=== PATIENT | female | born 2000 | race Caucasian/White ===

== ENCOUNTER 2024-04-15 21:05 | Emergency (ER) | payer OTHER, SELFPAY ==
[2024-04-15 21:15] VITALS: BP 114/71
[2024-04-15 21:39] LABS: % Basophils 0.3 % (0-2); % Eosinophils 0.7 % (0-6); % Immature Granulocytes 0.2 % (0-0.5); % Lymphocytes 13.1 % (20.5-51.1); % Monocytes 6.4 % (1.7-9.3); % Neutrophils 79.3 % (42.2-75.2); Absolute Eosinophils 0.1 10^3/uL (0-0.7); Absolute Lymphocytes 1.4 10^3/uL (1.2-3.4); Absolute Monocytes 0.7 10^3/uL (0.1-0.6); Absolute Neutrophils 8.3 10^3/uL (1.4-6.5); Hematocrit 42.1 % (37.0-47.0); Hemoglobin 14.3 g/dL (12.0-16.0); Mean Corpuscular Hgb 30.7 pg (27.0-31.0); Mean Corpuscular Volume 90.3 fL (81.0-99.0); Mean Platelet Volume 8.9 fL (7.4-10.4); Nucleated Red Blood Cells % 0 %; Platelet Count 213 10^3/uL (130-400); Red Blood Cell Count 4.66 10^6/uL (4.20-5.40); Red Cell Dist. Width 11.9 % (11.5-14.5); White Blood Cell Count 10.4 10^3/uL (4.8-10.8)
[2024-04-15 21:51] LABS: HCG, Serum Qualitative Screen Negative
[2024-04-15 21:59] LABS: ALT (SGPT) 18 U/L (0-35); AST (SGOT) 25 U/L (14-36); Albumin 4.7 g/dl (3.5-5.0); Alkaline Phosphatase 51 U/L (38-126); Blood Urea Nitrogen 12 mg/dl (7-17); Calcium 9.6 mg/dl (8.4-10.2); Carbon Dioxide 27 mmol/L (22-30); Chloride 106 mmol/L (98-107); Glucose 93 mg/dl (70-99); Potassium 4.2 mmol/L (3.5-5.1); Sodium 139 mmol/L (135-145); Total Bilirubin 0.2 mg/dl (0.2-1.3); Total Protein 7.3 g/dl (6.3-8.2); eGFR > 60.00
[2024-04-15 22:48] VITALS: BP 96/57
--- NOTE | 2024-04-15 23:14 | ED.GENMED ---
History of Present Illness
<VIOLETA Dupree - Last Filed: 04/16/24 01:11>
General
Chief Complaint: Abdominal Symptoms
Source: patient and family
Exam Limitations: none
Time Seen by Provider: 04/15/24 23:13
Nursing documentation reviewed up to this point in time: agreed with
History of Present Illness
History of Present Illness:
Pt is a 23 yo F who presents to the ED with her mother for nausea, vomiting and diarrhea x 3 hours. She states she has had 4 prior episodes on the past year that comes on randomly. She states she has been following with GI and an electrotyper apprentice who told
her to come to the ED for blood work within 4 hours of the next episode of these symptoms. She states nausea was her first symptom and then about 20 minutes after that she vomited 4 times, which she states was non-bloody. Pt states she has zofran at
home and took it, which resolved symptoms of nausea and vomiting. Soon after, diarrhea began and had been episodic since arrival to the ED. Pt states she is feeling fine now and just wanted to come for the blood work. She states she feels that she
will be able to rehydrate adequately at home.
Review of Systems
<VIOLETA Dupree - Last Filed: 04/16/24 01:11>
Review of Systems
Allergies reviewed?: Yes
Other source history: family
Constitutional: Denies fever, fatigue or chills
Respiratory: Denies cough or trouble breathing
Cardiac: Denies chest pain or palpitations
ABD/GI: Reports nausea, vomiting and diarrhea; Denies abdominal pain or bloody stools
: Reports no symptoms
Neurological: Denies dizzy, headache, weakness or numbness
Phy Exam
<VIOLETA Dupree - Last Filed: 04/16/24 01:11>
General Physical Exam
General Presentation: well appearing and no apparent distress
General age: appears stated age
General Skin: warm and dry
General Habitus: normal
General Mental: alert
General Hydration: appears well hydrated
Eye Exam
Eye Exam: PERRL
Cardiovascular Exam
Cardiovascular Exam: regular rate/rhythm and no murmur
Pulmonary Exam
Pulmonary Exam: lungs clear and no respiratory distress
Gastrointestinal Exam
Gastrointestinal Exam: normal bowel sounds, non tender, soft and non distended
Neurological Exam
Neurological Exam: alert, oriented x3, no motor deficits, no sensory deficits and speech normal
Psychiatric Exam
Psychiatric Exam: normal mood/affect
Course
<VIOLETA Dupree - Last Filed: 04/16/24 01:11>
Orders/Labs/Results
Orders:
Orders
04/15/24 21:14
Test Result ONCE
04/15/24 21:20
C1 Esterase Inhibitor, Funct [S] Urgent
Complement C4 Urgent
Complete Blood Count/With Diff Urgent
Comprehensive Metabolic Panel Urgent
HCG, Serum Qualitative Screen Urgent
Tryptase [S] Urgent
Abnormal Lab Results
04/15/24
21:20
Absolute Neuts (auto) 8.3 H 10^3/uL
(1.4-6.5)
Absolute Monos (auto) 0.7 H 10^3/uL
(0.1-0.6)
Neutrophils % 79.3 H %
(42.2-75.2)
Lymphocytes % 13.1 L %
(20.5-51.1)
04/15/24 21:20
04/15/24 21:20
Vital Signs
Initial and Last Documented VS:
Initial Vital Signs
Temp Pulse Resp BP Pulse Ox
98.7 F 98 18 114/71 98
04/15/24 21:15 04/15/24 21:15 04/15/24 21:15 04/15/24 21:15 04/15/24 21:15
Last Documented Vital Signs
Temp Pulse Resp BP Pulse Ox
98.7 F 68 18 96/57 98
04/15/24 21:15 04/15/24 22:48 04/15/24 22:48 04/15/24 22:48 04/15/24 22:48
<Saurav Mack, - Last Filed: 04/15/24 23:39>
Orders/Labs/Results
Orders:
Orders
04/15/24 21:14
Test Result ONCE
04/15/24 21:20
C1 Esterase Inhibitor, Funct [S] Urgent
Complement C4 Urgent
Complete Blood Count/With Diff Urgent
Comprehensive Metabolic Panel Urgent
HCG, Serum Qualitative Screen Urgent
Tryptase [S] Urgent
Abnormal Lab Results
04/15/24
21:20
Absolute Neuts (auto) 8.3 H 10^3/uL
(1.4-6.5)
Absolute Monos (auto) 0.7 H 10^3/uL
(0.1-0.6)
Neutrophils % 79.3 H %
(42.2-75.2)
Lymphocytes % 13.1 L %
(20.5-51.1)
04/15/24 21:20
04/15/24 21:20
Vital Signs
Initial and Last Documented VS:
Initial Vital Signs
Temp Pulse Resp BP Pulse Ox
98.7 F 98 18 114/71 98
04/15/24 21:15 04/15/24 21:15 04/15/24 21:15 04/15/24 21:15 04/15/24 21:15
Last Documented Vital Signs
Temp Pulse Resp BP Pulse Ox
98.7 F 68 18 96/57 98
04/15/24 21:15 04/15/24 22:48 04/15/24 22:48 04/15/24 22:48 04/15/24 22:48
<VIOLETA Dupree - Last Filed: 04/16/24 01:11>
*Critical Care Note
Total Time (30-74mins, 75-104mins- exclusive of procedures): Not Applicable
<VIOLETA Dupree - Last Filed: 04/16/24 01:11>
Update Note
Update Note:
04/15/24 @ 23:30pm: Pt states she is feeling well enough to drink and is requesting water, giving water now; will attempt PO challenge
ED Attending Note
<VIOLETA Dupree - Last Filed: 04/16/24 01:11>
-
Portions of this chart may have been created with voice recognition software.� Occasional wrong word or��sound alike� substitutions may have occurred due to the inherent limitations of voice recognition software.
<Saurav Mack DO - Last Filed: 04/15/24 23:39>
ED Attending Note
Patient seen and examined by attending physician: Yes
I performed the substantive portion of visit, reviewed & personally made and approve the management plan that is documented in note by myself or KEYON.: Yes
ED Attending Note:
This a pleasant 43-year-old female presents to the emergency department with nausea vomiting and diarrhea that has been present for the last 3 hours. She states that this happened to the last year. She resides in [place] with her [place] [facility]�. She has
been following with a soap tender and an electrotyper apprentice. She was told to come into the emergency department for specific blood work when her symptoms were present. Tonight she had some nausea and vomited several times thereafter. She states
that this was typical for one of her 'attacks '. She is here for the blood work. She took Zofran at home and her symptoms resolved. She was able to drink while in the ER. She had no complaints. Patient was seen in conjunction with the PA
student. I have reviewed and agree with the history and treatment plan presented. On my independent physical exam, patient is awake, alert, and oriented x3, no acute distress. Heart is regular rate and rhythm. Lungs clear to auscultation
bilaterally without wheezes rales or rhonchi present. Abdomen is soft nontender. Skin is warm and dry. Mentating appropriately. Moves all 4 extremities.
Discharge Plan
Departure
Patient Disposition: Home (Routine Discharge)
Date of Disposition: 04/15/24
Time of Disposition: 23:32
Patient with high blood pressure during this ER visit?: No
Condition: Good
Discharge Problem:
Abdominal pain
Instructions: Diarrhea in teens and adults, Nausea and Vomiting, Adult (DC), Abdominal Pain
Referrals:
[facility] [Outside]
UNKNOWN - PT DOES,NOT KNOW [Family Provider] - Follow up in 1 week
Activity Restrictions/Additional Instructions:
PLEASE FOLLOW UP WITH L[facility]ST[facility] LINING SETTER REGARDING LAB RESULTS.
PLEASE RETURN TO EMERGENCY DEPARTMENT OR CALL 911 IF ANY OF THE FOLLOWING SYMPTOMS PRESENT:
UNCONTROLLABLE VOMITING
UNCONTROLLABLE DIARRHEA
BLOOD IN VOMIT OR DIARRHEA
SHORTNESS OF BREATH
CHEST PAIN
Interventions
Interventions:
*Nursing Disposition Last Done: 04/16/24 00:05
LI-Zgepsn-Oabirvmezy Assessment Last Done: 04/15/24 21:56
Discharge Date and Time
Discharge Date/Time: 04/16/24 00:05
Print Language: [id number]
== END 2024-04-16 00:05 | disposition home or self-care (01) ==
LOC: EMR 21:05
PROVIDERS: Emergency Medicine; EMERGENCY PHYSICIAN Student in an Organized Health Care Education/Training Program
DX: R10.9 Unspecified abdominal pain (principal); R11.2 Nausea with vomiting, unspecified; R19.7 Diarrhea, unspecified
CPT/HCPCS: 99283; 80053; 83520; 84703; 85025; 86160; 86161